=== PATIENT | female | born 1990 | race Caucasian/White ===

== ENCOUNTER 2017-01-23 15:24 | Emergency (ER) | payer OTHER ==
[2017-01-23 15:31] VITALS: BP 111/82
--- NOTE | 2017-01-23 16:18 | ER Document Report ---
ED Oral Problem - General Chief Complaint: Toothache Stated Complaint: TOOTHACHE Time Seen by Provider: 01/23/17 16:13 Mode of Arrival: Ambulatory Information source: Patient TRAVEL OUTSIDE OF THE [place] IN LAST 30 DAYS: No - HPI Patient complains to provider of: Toothache Onset: Just prior to arrival Onset: Sudden Quality of pain: Achy Severity: Moderate Pain Level: 3 Context: Fractured tooth Associated symptoms: None Notes: Patient is a 26-year-old female presenting to the emergency room today complaining of fractured tooth with pain, states she was flossing her teeth today when a small piece of tooth came out with the Floxin she has been having pain in the area since, denies any trauma, no fevers, no swelling or drainage - Related Data Allergies/Adverse Reactions: shellfish derived Allergy (Verified 01/23/17 16:33) steroids Allergy (Mild, Uncoded 01/23/17 16:33) Past Medical History - General Information source: Patient - Social History Smoking Status: Never Smoker Family History: Reviewed & Not Pertinent Renal/ Medical History: Denies: Hx Peritoneal Dialysis Review of Systems - Review of Systems Constitutional: No symptoms reported EENT: See HPI Cardiovascular: No symptoms reported Respiratory: No symptoms reported Gastrointestinal: No symptoms reported Genitourinary: No symptoms reported Female Genitourinary: No symptoms reported Musculoskeletal: No symptoms reported Skin: No symptoms reported Hematologic/Lymphatic: No symptoms reported Neurological/Psychological: No symptoms reported -: Yes All other systems reviewed and negative Physical Exam - Vital signs Vitals: Temp Pulse Resp BP Pulse Ox 98.5 F 82 16 111/82 99 01/23/17 15:29 01/23/17 15:29 01/23/17 15:29 01/23/17 15:29 01/23/17 15:29 - Notes Notes: - General General appearance: Appears well, Alert In distress: None - HEENT Head: Normocephalic, Atraumatic Eyes: Normal Conjunctiva: Normal Extraocular movements intact: Yes Eyelashes: Normal Pupils: PERRL - Respiratory Respiratory status: No respiratory distress - Cardiovascular Rhythm: Regular - Abdominal Inspection: Normal - Back Back: Normal - Extremities General upper extremity: Normal inspection General lower extremity: Normal inspection - Neurological Neuro grossly intact: Yes Orientation: AAOx4 [place] Coma Scale Eye Opening: Spontaneous [place] Coma Scale Verbal: Oriented [place] Coma Scale Motor: Obeys Commands [place] Coma Scale Total: 15 - Psychological Associated symptoms: Normal affect, Normal mood - Skin Skin Temperature: Warm Skin Moisture: Dry Skin Color: Normal - HEENT Mouth/Lips: Dental fracture - A small anterior portion of tooth #32 fractured, no surrounding edema or drainage Teeth diagram: 1 - Small portion of tooth fractured Course - Re-evaluation Re-evalutation: 01/23/17 16:40 Patient with small fractured tooth #32, provided with pain medication and advised to follow-up with dentist within the next 2-3 days or return if symptoms worsen, patient acknowledges understanding and agreement with this plan - Vital Signs Vital signs: Temp Pulse Resp BP Pulse Ox 98.5 F 82 16 111/82 99 01/23/17 15:29 01/23/17 15:29 01/23/17 15:29 01/23/17 15:29 01/23/17 15:29 Discharge - Discharge Clinical Impression: Tooth fracture Qualifiers: Encounter type: initial encounter Fracture type: closed Qualified Code(s): S02.5XXA - Fracture of tooth (traumatic), initial encounter for closed fracture Condition: Stable Disposition: HOME, SELF-CARE Instructions: Dentist, Dental Injury ([facility]), Oral Narcotic Medication ([facility]), Toothache ([facility]) Additional Instructions: Follow up with your primary care provider and a dentist in one to 2 days. Return to the emergency room immediately if symptoms worsen or any additional concerns. Prescriptions: Oxycodone HCl/Acetaminophen [Percocet 5-325 mg Tablet] 1 - 2 tab PO ASDIR PRN # 15 tablet PRN Reason: Referrals: ESTHER JEAN NP [Primary Care Provider] - Follow up as needed
== END 2017-01-23 16:21 | disposition home or self-care (01) ==
LOC: ER 15:24
DX: S02.5XXA Fracture of tooth (traumatic), initial encounter for closed fracture (principal); K08.89 Other specified disorders of teeth and supporting structures; X58.XXXA Exposure to other specified factors, initial encounter
CPT/HCPCS: 99282

== ENCOUNTER 2018-07-18 20:31 | Emergency (ER) | payer OTHER ==
[2018-07-18 22:29] VITALS: BP 135/92
--- NOTE | 2018-07-18 22:29 | ER Document Report ---
ED Medical Screen (RME) - General Chief Complaint: Vaginal Bleeding Stated Complaint: PELVIC PAIN Time Seen by Provider: 07/18/18 22:26 Primary Care Provider: ESTHER JEAN NP [Primary Care Provider] - Follow up as needed Notes: +home preg test, spotting for 5 days. I have greeted and performed a rapid initial assessment of this patient. A comprehensive ED assessment and evaluation of the patient, analysis of test results and completion of the medical decision making process will be conducted by additional ED providers. TRAVEL OUTSIDE OF THE [place] IN LAST 30 DAYS: No - Related Data Allergies/Adverse Reactions: shellfish derived Allergy (Verified 01/23/17 16:33) steroids Allergy (Mild, Uncoded 01/23/17 16:33) Past Medical History Renal/ Medical History: Denies: Hx Peritoneal Dialysis Physical Exam - Vital signs Vitals: Temp Pulse Resp BP Pulse Ox 98.6 F 78 18 147/94 H 99 07/18/18 20:37 07/18/18 20:37 07/18/18 20:37 07/18/18 20:37 07/18/18 20:37 Course - Vital Signs Vital signs: Temp Pulse Resp BP Pulse Ox 98.6 F 78 18 147/94 H 99 07/18/18 20:37 07/18/18 20:37 07/18/18 20:37 07/18/18 20:37 07/18/18 20:37 Doctor's Discharge - Discharge Referrals: ESTHER JEAN NP [Primary Care Provider] - Follow up as needed
--- NOTE | 2018-07-19 00:37 | RADIOLOGY REPORT (SQ) ---
EXAM DESCRIPTION: US TRANSVAGINAL COMPLETED DATE/TME: 07/18/2018 22:27 CLINICAL HISTORY: 27 years, Female, bleeding/pain COMPARISON: None. TECHNIQUE: LIMITATIONS: None. FINDINGS: There are no fibroids. The endometrial stripe measures 1.5 mm. The right ovary is unremarkable. Blood flow was demonstrated in the right ovary with Doppler. The left ovary was not visualized. No free fluid. IMPRESSION: No sonographic abnormality. copyright 2010 [employer]- All Rights Reserved
== END 2018-07-19 01:12 | disposition left against medical advice (07) ==
LOC: ER 20:31
DX: N93.8 Other specified abnormal uterine and vaginal bleeding (principal); Z91.013 Allergy to seafood
CPT/HCPCS: 76830; 93976; 99281

== ENCOUNTER 2018-07-20 12:30 | Emergency (ER) | payer OTHER ==
[2018-07-20 13:52] LABS: APPEARANCE,URINE CLEAR; BILIRUBIN,URINE NEGATIVE (NEGATIVE); COLOR,URINE YELLOW; GLUCOSE, URINE 50 mg/dL (NEGATIVE); KETONES,URINE NEGATIVE (NEGATIVE); LEUKOCYTE ESTERASE,URINE NEGATIVE (NEGATIVE); NITRITE,URINE NEGATIVE (NEGATIVE); PROTEIN,URINE NEGATIVE (NEGATIVE); URINE SPECIFIC GRAVITY 1.014; UROBILINOGEN,URINE NEGATIVE mg/dL (<2.0)
--- NOTE | 2018-07-20 14:07 | ER Document Report ---
ED General - General Chief Complaint: Nausea Stated Complaint: NAUSEA Time Seen by Provider: 07/20/18 13:01 Primary Care Provider: ESTHER JEAN NP [Primary Care Provider] - Follow up in 3-5 days Notes: Patient is a 27-year-old female that presents to the emergency department for chief complaint of abnormal vaginal bleeding. Patient states she is been having spotting for several weeks now, had taken 2 test, both were negative, she is been having intermittent cramping associated with this and nausea but without vomiting. She has had some clots associated, they have varied in size. She is on oral contraceptive pill, she has been on it for about a year now. She denies any changes in medications. She states she was trying to get , but has had negative test so far. She had an ultrasound performed yesterday, but did not wait for the results, she was in the emergency department last night. Denies having any chest pain, shortness of breath, nausea, vomiting, dysuria, hematuria but does admit to having some occasional urinary frequency. Past Medical History: Denies chronic medical conditions Past Surgical History: Denies recent or pertinent surgical history Social History: Denies tobacco, alcohol or drug use. Family History: Reviewed and noncontributory for presenting illness Allergies: Reviewed, see documented allergy list. REVIEW OF SYSTEMS: Other than noted above, the 12 point review of systems was reviewed with the patient and were negative, all pertinent findings are included in the HPI. PHYSICAL EXAMINATION: Vital signs reviewed, nursing noted reviewed. GENERAL: Well-appearing, well-nourished and in no acute distress. HEAD: Atraumatic, normocephalic. EYES: Eyes appear normal, extraocular movements intact, sclera anicteric, conjunctiva are normal. ENT: nares patent, oropharynx clear without exudates. Moist mucous membranes. NECK: Normal range of motion, supple without lymphadenopathy LUNGS: Breath sounds clear to auscultation bilaterally and equal. No wheezes rales or rhonchi. HEART: Regular rate and rhythm without murmurs ABDOMEN: Soft, nontender, normoactive bowel sounds. No rebound, guarding, or rigidity. No masses appreciated. EXTREMITIES: Nontender, good range of motion, no pitting or edema. NEUROLOGICAL: No focal neurological deficits. Moves all extremities spontaneously Motor and sensory grossly intact on exam. PSYCH: Normal mood, normal affect. SKIN: Warm, Dry, normal turgor, no rashes or lesions noted on exposed skin TRAVEL OUTSIDE OF THE [place] IN LAST 30 DAYS: No - Related Data Allergies/Adverse Reactions: shellfish derived Allergy (Verified 07/20/18 13:09) steroids Allergy (Mild, Uncoded 07/20/18 13:09) Past Medical History - Social History Smoking Status: Never Smoker Chew tobacco use (# tins/day): No Frequency of alcohol use: Occasional Drug Abuse: None Family History: Reviewed & Not Pertinent Patient has suicidal ideation: No Patient has homicidal ideation: No Renal/ Medical History: Denies: Hx Peritoneal Dialysis Psychiatric Medical History: Reports: Hx Depression - anxiety Physical Exam - Vital signs Vitals: Temp Pulse Resp BP Pulse Ox 98.2 F 77 20 140/84 H 99 07/20/18 12:34 07/20/18 12:34 07/20/18 12:34 07/20/18 12:34 07/20/18 12:34 Course - Re-evaluation Re-evalutation: Patient seen and examined vital signs reviewed. Laboratory data ordered as appropriate for the patient's presenting symptoms and complaint, with consideration of any critical or life threatening conditions that may be associated with their obtained history and exam as noted above. Results were reviewed when available and demonstrated negative hCG and UA, ultrasound performed the prior evening, was unremarkable, left ovary not visualized, but the patient was having more right-sided cramping, and the ovary was well visualized, and good arterial and venous flow The patient was re-evaluated and was stable Evaluation was most consistent with abnormal vaginal bleeding, advised follow-up with [facility] Results were discussed with the patient at this point, after careful consideration I feel that that patient can be discharged from the emergency department, the patient was educated treatments and reasons to return to the emergency department based on their presumed diagnosis as noted above, they were advised to followup with a primary care physician in 2-3 days. Patient was agreeable to plan of care. *Note is created using voice recognition software and may contain spelling, syntax or grammatical errors. Laboratory 07/20/18 13:31 Urine Color YELLOW Urine Appearance CLEAR Urine pH 5.0 Ur Specific Qulin 1.014 Urine Protein NEGATIVE Urine Glucose (UA) 50 H Urine Ketones NEGATIVE Urine Blood SMALL H Urine Nitrite NEGATIVE Urine Bilirubin NEGATIVE Urine Urobilinogen NEGATIVE Ur Leukocyte Esterase NEGATIVE Urine WBC (Auto) 1 Urine RBC (Auto) 0 Squamous Epi Cells Auto <1 Urine Mucus (Auto) RARE Urine Ascorbic Acid NEGATIVE Urine HCG, Qual NEGATIVE - Vital Signs Vital signs: Temp Pulse Resp BP Pulse Ox 98.6 F 76 20 132/79 H 99 07/20/18 15:52 07/20/18 15:52 07/20/18 12:34 07/20/18 15:52 07/20/18 15:52 - Laboratory Laboratory results interpreted by me: 07/20/18 13:31 Urine Glucose (UA) 50 H Urine Blood SMALL H Discharge - Discharge Clinical Impression: Irregular menstrual bleeding Condition: Stable Disposition: HOME, SELF-CARE Instructions: Vaginal Bleeding ([facility]) Additional Instructions: Please follow-up with your primary care and [facility], as they may need to adjust your oral contraceptive pills, your testing today revealed a normal urine test, no signs of urinary tract infection, please send this for culture, we will call you if it turns out to be positive on the culture, your urine test was negative today. You have been been prescribed a anti-nausea medicine if needed. Prescriptions: Ondansetron [Zofran Odt 4 mg Tablet] 1 tab PO Q8H PRN #15 tab.rapdis PRN Reason: For Nausea/Vomiting Referrals: ESTHER JEAN NP [Primary Care Provider] - Follow up in 3-5 days
[2018-07-20 16:00] VITALS: BP 132/79
== END 2018-07-20 15:56 | disposition home or self-care (01) ==
LOC: ER 12:30
DX: N92.6 Irregular menstruation, unspecified (principal); R11.0 Nausea; R25.2 Cramp and spasm; Z79.3 Long term (current) use of hormonal contraceptives; Z91.013 Allergy to seafood; Z88.8 Allergy status to other drugs, medicaments and biological substances
CPT/HCPCS: 81001; 81025; 87086; 99284